=== PATIENT | female | born 1940 | race Caucasian/White ===

== ENCOUNTER 2016-09-12 06:58 | Day surgery (SDC) | payer MEDICARE ==
[2016-09-12] VITALS (8 sets, daily range): BP systolic 103–186; BP diastolic 44–82; PULSE 64–79; RESP 17–20; TEMP 97.6–98.2; O2SAT 92–96
[~2016-09-12] VITALS: Ht 160 cm; Wt 69.5 kg
[~2016-09-12 06:58] MED LIST: ALBU1AER INH; BONI150T PO; CALC0.5C6 PO; DILT60TA PO; EZET10 PO; FLUTI110I INH; FURO20 PO; PRED1TAB PO; SYNT125T PO; TUMS500C PO
[2016-09-12] MEDS ORDERED: ALBUAER3 INH (07:32)
[2016-09-12] MEDS ORDERED: LEVO.125 PO (07:34)
[2016-09-12] MEDS ORDERED: DILT120C15 PO (07:34)
[2016-09-12] MEDS ORDERED: PRED10 PO (07:35)
[2016-09-12] MEDS ORDERED: TUMS500C CHEW (07:36)
[2016-09-12] MEDS ORDERED: BONI150T PO (07:38)
[2016-09-12] MEDS ORDERED: ZETI10TA5 PO (07:39)
[2016-09-12] MEDS ORDERED: FLUTI110I INH (07:40)
[2016-09-12] MEDS ORDERED: LIDOCAINE 1%/EPINEPHrine 1:100,000 SOLN 20 ML VIAL ONE (08:00)
[2016-09-12] MEDS ORDERED: SODIUM BICARBONATE 8.4% INJ 50 ML ONE (08:01)
[2016-09-12] MEDS ORDERED: fentaNYL CITRATE 250 MCG/5 ML AMP ONE (09:24)
[2016-09-12] MEDS ORDERED: MIDAZOLAM HCL 5 MG/5 ML VIAL ONE (09:24)
[2016-09-12] MEDS ORDERED: oxyCODONE/ACETAMINOPHEN 5 MG/325 MG TAB PO PRN (11:00)
--- NOTE | 2016-09-12 11:39 | RADRPT ---
EXAM DATE/TIME: 09/12/2016 09:15 [facility] COMPARISON: CT GUIDED PERICARDIOCENTESIS, April 30, 2015, 9:49. INDICATIONS : Pericardial effusion. SEDATION TIME: 30 minutes MEDICATION(S): 1.) 4 mg midazolam (Versed) IV 2.) 200 mcg fentanyl (Sublimaze) IV DEVICE(S): 1.) 6 Fr Skater 2.) micropuncture introducer FLUID: Total volume of 500 cc of clear, yellow fluid was removed. Fluid was sent for laboratory ordered studies. MEDICAL HISTORY : Renal cell carcinoma, metastatic lung disease SURGICAL HISTORY : Hysterectomy. Cholecystectomy. Left lung resection ENCOUNTER: Initial ACUITY: 1 day PAIN SCORE: 0/10 LOCATION: chest PROCEDURE: 1.) Conscious sedation with continuous EKG and oximetry monitoring. PROCEDURE : CT guided pericardiocentesis. The risks, benefits and alternatives to the procedure were explained and verbal and written consent w as obtained. The site was prepped in sterile fashion. Full sterile technique was used, including ca p, mask, sterile gloves and gown and a large sterile sheet. Hand hygiene and 2% chlorhexidine and/or betadine/alcohol prep was utilized per protocol for cutaneous antisepsis. The skin and subcutaneous tissues were infiltrated with local anesthetic solution. The patient's prior imaging studies were reviewed. The patient was placed slightly obliqued but supin e on the CT couch and optimal site for needle placement was marked on the patient's left anterior lat eral chest wall. The patient was then prepped and draped in a sterile fashion and 1% lidocaine was us ed as a local anesthetic. CT confirmed appropriate location of the needle. The needle was advanced in the pericardial space and clear yellow liquid was immediately aspirated. Samples were saved. Using a micropuncture needle set a 3-4 dilator was placed and ultimately a guidewire and 6 Pakistani nonlocking skater catheter was placed into the pericardial space. Approximately 500 cc of clear yellow fluid wa s removed without difficulty. The catheter was then removed and post procedure imaging demonstrates n o significant residual pericardial fluid. There is a trace amount of pericardial air. Post procedure imaging demonstrates no pneumothorax or concerning complication. CONCLUSION: Uncomplicated CT guided pericardiocentesis as above. The pericardial effusion was com pletely drained with removal of approximately 500 cc of clear yellow fluid. Boom Brooks MD on September 12, 2016 at 11:33 Board Certified Radiologist. This report was verified electronically.
[2016-09-12 11:41] LABS: PERICARDIAL HISTIOCYTES 38 %; PERICARDIAL LYMPHS 44 %; PERICARDIAL MONOS 10 %; PERICARDIAL POLYS(SEGS) 8 %; PERICARDIAL RBC 5480 /MM3 (0-0); PERICARDIAL WBC 39 /MM3 (0-10)
--- NOTE | 2016-09-12 12:27 | RADRPT ---
EXAM DATE/TIME: 09/12/2016 11:59 [facility] COMPARISON: CHEST EXPIRATION ONLY, July 23, 2014, 11:16. INDICATIONS : Post pericardiocentesis. MEDICAL HISTORY : Renal cell carcinoma, metastatic lung disease SURGICAL HISTORY : Hysterectomy. Cholecystectomy. Left lung resection ENCOUNTER: Subsequent ACUITY: 1 day PAIN SCORE: 0/10 LOCATION: chest FINDINGS: Upright portable expiratory view of the chest demonstrates no pneumothorax following recent pericardi ocentesis. There is a stable parenchymal opacity in the left lower lung zone with mild leftward shift of the mediastinum. CONCLUSION: No pneumothorax is visualized. Boom Brooks MD on September 12, 2016 at 12:25 Board Certified Radiologist. This report was verified electronically.
== END 2016-09-12 13:30 | disposition home or self-care (01) ==
LOC: HRAD 06:58 → EDSTATUS 07:00 → HRIP 07:00 → HRAD 13:30
PROVIDERS: ATTEND Internal Medicine Hematology & Oncology
DX: I31.3 Pericardial effusion (noninflammatory) (principal)
CPT/HCPCS: 33010; 71010; 77012; 83615; 84157; 84315; 87015; 87070; 87102; 87116; 87205; 87206; 88112; 88305; 89051; C1729; C1769; J2250; J3010